=== PATIENT | female | born 1990 | race Caucasian/White ===

== ENCOUNTER 2019-07-25 16:15 | Emergency (ER) | payer BC, OTHER ==
[2019-07-25 16:33] VITALS: BP 128/87
== END 2019-07-25 17:23 | disposition left against medical advice (07) ==
LOC: ED 16:15
DX: S89.91XA Unspecified injury of right lower leg, initial encounter (principal); X58.XXXA Exposure to other specified factors, initial encounter; Y92.9 Unspecified place or not applicable; Z53.21 Procedure and treatment not carried out due to patient leaving prior to being seen by health care provider

== ENCOUNTER 2019-10-07 11:14 | Day surgery (SDC) | payer OTHER ==
[~2019-10-07 11:14] MED LIST: Buffered Lidocaine 1% SYRIN* 1 ML/SYRINGE INTRADERM ONE; Dexamethasone IV* 4 MG/ML 1 ML (4 MG) IV SLOW PU ONE; Lactated Ringers 1000 ML Bag* 1,000 ML IV SCH; Levalbuterol 0.63MG/3ML NEB* UNIT OF USE INH ONE
[2019-10-07] MEDS ORDERED: Levalbuterol 0.63MG/3ML NEB* UNIT OF USE INH ONE (11:49)
[2019-10-07] MEDS ORDERED: Dexamethasone IV* 4 MG/ML 1 ML (4 MG) ONE (11:49)
[2019-10-07] MEDS ORDERED: ceFAZolin 1 GM ADVAN(*) 1 GM ADDV.VIAL IVPB ONE (11:49)
[2019-10-07] MEDS ORDERED: ceFAZolin 2 GM in NS PREMIX(*) 2 GM/100 ML BAG IVPB ONE (11:50)
[2019-10-07] MEDS ORDERED: Buffered Lidocaine 1% SYRIN* 1 ML/SYRINGE INTRADERM ONE (11:50)
[2019-10-07] MEDS ORDERED: Famotidine IV* 10 MG/ML 2 ML (20 mg) ONE (11:51)
[2019-10-07] MEDS ORDERED: EPINEPHRINE 1 MG/ML 1 ML VIAL ONE (12:43)
[2019-10-07] MEDS ORDERED: Bupivacaine 0.5% W/EPI SDV* 10 ML VIAL INJ ONE (12:43)
[2019-10-07] MEDS ORDERED: Midazolam* 1 MG/ML 5 ML VIAL (5 MG) ONE (13:01)
[2019-10-07] MEDS ORDERED: fentaNYL* 50 MCG/ML 5 ML VIAL (250 MCG VIAL) ONE (13:01)
[2019-10-07] MEDS ORDERED: Succinylcholine* 20 MG/ML 10 ML VIAL ONE (13:02)
[2019-10-07] MEDS ORDERED: Ondansetron INJ* 2 MG/ML VIAL ONE (13:02)
[2019-10-07] MEDS ORDERED: Ketorolac INJ* 30 MG/ML 1 ML VIAL ONE (13:02)
[2019-10-07] MEDS ORDERED: Propofol* 10 MG/ML 20 ML BTL ONE (13:02)
[2019-10-07] MEDS ORDERED: Lidocaine 2% PF * 5 ML VIAL ONE (13:19)
[2019-10-07] MEDS ORDERED: Naloxone* 0.4 MG/ML 1 ML VIAL IV PRN (13:38)
[2019-10-07] MEDS ORDERED: HYDROcodone/ACETAMIN 5-325 MG* 1 TAB PO PRN (13:38)
[2019-10-07] MEDS ORDERED: DiMENhydriNATE IV* 50 MG/ML VIAL IV PUSH PRN (13:38)
[2019-10-07] MEDS ORDERED: Ondansetron INJ* 2 MG/ML VIAL IV PRN (13:38)
[2019-10-07] MEDS ORDERED: Levalbuterol 1.25MG/0.5ML NEB ONE (13:48)
[2019-10-07] MEDS ORDERED: Levalbuterol HFA INHALER* 1 PUFF MDI ONE (13:49)
[2019-10-07] MEDS ORDERED: fentaNYL* 50 MCG/ML 2 ML VIAL (100 MCG VIAL) ONE (14:42)
[2019-10-07] MEDS ORDERED: HYDROcodone/ACETAMIN 5-325 MG* 1 TAB ONE (14:42)
[2019-10-07] MEDS: fentaNYL* 50 MCG/ML 2 ML VIAL (100 MCG VIAL) IV PRN ×2 (14:44→14:51)
[2019-10-07 15:45] VITALS: BP 140/87
--- NOTE | 2019-10-08 01:11 | OP ---
DATE OF OPERATION: 10/07/19 - [facility] DATE OF : 89. SURGEON: Tony Farooq MD BURNER OPERATOR: ARTIE Jeffery. A physician geriatric nurse assistant was required for the length of the procedure for assistance with patient positioning, retraction, instrumentation, and closure. ANESTHESIOLOGIST: Dr. Paiz. ANESTHESIA: General anesthesia, local anesthesia consisting of Marcaine 0.5% with epinephrine 30 cc placed subcutaneous. PRE-OP DIAGNOSES: 1. Right knee medial meniscus tear, displaced, bucket handle. 2. Right knee anterior cruciate ligament deficiency. POST-OP DIAGNOSES: 1. Right knee medial meniscus tear, displaced, bucket handle. 2. Right knee anterior cruciate ligament deficiency. 3. Right knee synovitis. OPERATIVE PROCEDURE: 1. Right knee arthroscopic partial medial meniscectomy. 2. Right knee arthroscopic synovectomy, multiple parts of the knee, suprapatellar, medial, anterior. ANTIBIOTICS: Ancef 3 g IV. IV FLUIDS: See anesthesia note. [id number]-GL-LNXT TIME: 31 minutes. TOURNIQUET TIME: 36 minutes at 300 mmHg, right proximal thigh tourniquet. SPECIMEN: None. IMPLANTS: None. COMPLICATIONS: None. ESTIMATED BLOOD LOSS: Minimal. INDICATIONS FOR PROCEDURE: The patient is a 29-year-old woman, with the history of a distant past right knee ACL reconstruction done in [place], [place] , who postoperatively has re-torn that ACL. The patient has a BMI of 53.4. The patient recently injured herself at work on 07/25/19 that was just over 2 months ago. Since that injury, the patient has not been able to fully extend the right knee. She has had swelling anterior and medial, has been very unstable walking on stairs, scared of falling down the stairs. Of note, the patient is bipolar, has smoked 1.5 packs per day for 10 years and is a daily user of marijuana. The patient has actually had bilateral knee ACL reconstruction surgeries in the past and does have some chronic contralateral left knee pain and has been told that she has osteoarthritis in that knee. The patient stopped seeing the orthopedic surgeon in [place] and came to me for her right knee pain. The pain is significant and prevents her from fully straightening the knee, and that has been the case since the injury at work on 07/25/19. Discussed potential risks and complications of the operative procedure with the patient. Also discussed possible progression of osteoarthritis in the future especially given the patient's prior ACL tear, her current ACL deficiency, her obesity, and the presence already of some degenerative changes of the articular cartilage in bilateral knees. Her range of motion preop was only 10 to 100 degrees of flexion with significant medial pain with terminal extension and medial and lateral pain with terminal flexion. MRI demonstrated a bucket handle medial meniscus tear, which appeared to tear at the mid substance rather than at the meniscocapsular junction. There looked to be displacement into the intercondylar notch. DESCRIPTION OF PROCEDURE: In the preoperative holding, the patient signed a written consent. Operative extremity was marked in preoperative holding. The patient was brought back to the operating room, placed supine on the operating room table. Sedated and intubated. [place] bump placed under the right hemipelvis. Tourniquet placed around the right proximal thigh. Right distal thigh placed in a circumferential thigh curiel. The table was elevated and the foot of the bed was dropped. Right lower extremity was prepped and draped. Surgical time-out was performed. Esmarch was applied and tourniquet was elevated. Anterolateral knee arthroscopy portal was established using standard technique. Diagnostic arthroscopy was immediately significant for some significant synovitis about the suprapatellar pouch as well as within the patellofemoral compartment. This is definitely extreme amount of synovitis for the patient with a knee injury. We established an anteromedial low portal under direct visualization and used it to place an arthroscopic shaver to debride synovitic tissue in the suprapatellar pouch as well as in the patellofemoral compartment. I did not notice any significant articular cartilage in the patellofemoral compartment. We dropped down to the anterior inferior aspect of the knee. The patient clearly had a fragment, bucket handle tear of the medial meniscus that had displaced up into the intercondylar notch, just medial to the PCL. I used arthroscopic shaver to debride a ligamentum mucosum and other anterior synovitis. Then used a probe to loosen the displaced meniscus fragment. I determined that this was clearly not a meniscal repair environment given the articular cartilage injury that was already visible on the medial compartment, grade 3 on the femur and grade 2 on the tibia. We cut the meniscus and then debrided much of the torn meniscus. There was still a fragment remaining flipped up into the intercondylar notch. I then entered the medial compartment. I smoothed out the meniscus along the posterior horn and body and then was happy that that final piece of torn meniscus, flipped into the medial compartment and I debrided the rest of that with an arthroscopic shaver. The remainder of the meniscus was stable. There may have been partial anterior root tear, but this was certainly not a repair environment. I mentioned the articular cartilage changes above. The patient had no ACL present. PCL was present. Lateral compartment was remarkable for no meniscal tear, nor any significant articular cartilage changes. Last, I went up to the patellofemoral compartment. No articular cartilage damage there. Fluid was removed from the knee. Skin incisions closed with [id number] and twelve stitches using nylon 3.0 suture. Local anesthetic injected subcutaneous. Dressing consisted of Xeroform, 4x4s, ABD, sterile Webril, Bebeto bandage from foot to proximal groin. Cooling unit applied. DISPOSITION: The patient was discharged home when medically stable. Crutches and weightbearing as tolerated. Aspirin for 2 weeks for DVT prophylaxis. The patient is on chronic [place] and we will give her tramadol for breakthrough pain. Antibiotic for 3 days as prophylaxis. The patient will start physical therapy immediately and will follow up in 10 to 14 days in clinic with me. [id number]/[facility] #: [id number] WALTER
== END 2019-10-07 15:55 | disposition home or self-care (01) ==
LOC: OR 11:14
PROVIDERS: ATTEND Orthopaedic Surgery
DX: S83.211A Bucket-handle tear of medial meniscus, current injury, right knee, initial encounter (principal); M65.861 Other synovitis and tenosynovitis, right lower leg; X50.0XXA Overexertion from strenuous movement or load, initial encounter; Y92.9 Unspecified place or not applicable; Y99.0 Civilian activity done for income or pay; E66.01 Morbid (severe) obesity due to excess calories; Z68.43 Body mass index [BMI] 50.0-59.9, adult; F41.8 Other specified anxiety disorders; E03.9 Hypothyroidism, unspecified; F31.9 Bipolar disorder, unspecified; F17.210 Nicotine dependence, cigarettes, uncomplicated
CPT/HCPCS: 81025; A9270-GY; J0330; J0690; J1100; J1885; J2250; J2405; J2704; J3010